=== PATIENT | female | born 1995 | race Caucasian/White ===

== ENCOUNTER 2016-05-15 04:25 | Observation (INO) | payer OTHER ==
[~2016-05-15] VITALS: Ht 180.3 cm; Wt 85.7 kg
[~2016-05-15 04:25] MED LIST: COLACE 100MG C100 MG PO; IBUPROFEN600 MG PO; NORCO 5-325 TA1 EACH PO; PRAMET FA TAB1 EA PO
[2016-05-15 05:24] LABS: RED BLOOD COUNT 4.86 M/UL (4.00-5.10); WHITE BLOOD COUNT 20.2 K/UL (4.5-11.0)
[2016-05-15 05:38] LABS: BUN/CREATININE RATIO 31 (0-10)
[2016-05-16 04:58] LABS: HEMOGLOBIN 12.3 gm/dl (12.3-15.3)
[2016-05-16 04:59] LABS: RED BLOOD COUNT 4.3 M/UL (4.00-5.10); WHITE BLOOD COUNT 11.6 K/UL (4.5-11.0)
[2016-05-16 05:23] LABS: BUN/CREATININE RATIO 13 (0-10)
[2016-05-16] MEDS ORDERED: NORCO 7.5-3251 EACH PO (12:54)
== END 2016-05-16 13:50 | disposition home or self-care (01) ==
LOC: ER1 04:25 → ZEROF 09:12 → M/S 10:02
PROVIDERS: Specialist/Technologist Athletic Trainer; ADMIT Surgery
PROC: 0FT44ZZ Resection of Gallbladder, Percutaneous Endoscopic Approach (ICD-10-PCS; principal; 2016-05-15 15:01)
DX: K80.10 Calculus of gallbladder with chronic cholecystitis without obstruction (principal); G47.30 Sleep apnea, unspecified; G43.909 Migraine, unspecified, not intractable, without status migrainosus; F41.9 Anxiety disorder, unspecified; F17.210 Nicotine dependence, cigarettes, uncomplicated; Z82.49 Family history of ischemic heart disease and other diseases of the circulatory system; Z83.3 Family history of diabetes mellitus; Z98.890 Other specified postprocedural states
CPT/HCPCS: 36415; 76705; 80053; 83605; 83690; 84703; 85025; 94640; 94664; 96372; 96374; 96375; 96376; 99285; G0378; J1100; J1335; J1650; J2250; J2270; J2405; J2710; J3010; J7030; J7050; J7120; Q9962

== ENCOUNTER 2021-01-24 02:41 | Emergency (ER) | payer OTHER ==
[~2021-01-24 02:41] MED LIST changes: +DELSYM30 MG/5 ML PO; +FLONASE 0.05% N16 GM; +MACROBID 100 M100 MG PO; +NORCO 7.5-3251 EACH PO; +PREPARATION H1 EAC1 PR; +PYRIDIUM100 MG PO; +ZYRTEC10 MG PO
[2021-01-24] MEDS ORDERED: BENZONATATE100 MG PO (06:17)
== END 2021-01-24 06:24 | disposition home or self-care (01) ==
LOC: ER1 02:41
DX: J06.9 Acute upper respiratory infection, unspecified (principal); Z20.822 Contact with and (suspected) exposure to COVID-19; F17.210 Nicotine dependence, cigarettes, uncomplicated
CPT/HCPCS: 71045; 84703; 85379; 99283; U0002